=== PATIENT | female | born 1975 | race Caucasian/White ===

== ENCOUNTER 2020-05-18 16:21 | Emergency (ER) | payer OTHER, SELFPAY ==
--- NOTE | ~2020-05-18 | CT_ITS ---
EXAMINATION: CT abdomen pelvis w con DATE: 05/18/2020 17:38 INDICATION: Lower abdominal pain. TECHNIQUE: Computed tomography (CT) of the abdomen and pelvis was performed with 100 mL Omnipaque-350 intravenous contrast. Automated exposure control and iterative reconstruction technique were employe d. The dose-length product was 550.70 mGy-cm. COMPARISON: None FINDINGS: Small calcified left lower lobe nodule consistent with old granulomatous disease. Heart size is magno l. No pericardial or pleural effusion. Small sliding-type hiatal hernia. Liver, gallbladder, pancreas , bilateral adrenal glands and kidneys are normal. Multiple splenic calcific lesions consistent with old granulomatous disease. Large amount of stool scattered throughout the colon. No bowel obstruction . Nonvisualized appendix with suture line at the tip of the cecum suggesting prior appendectomy. 3.2 cm right adnexal cyst. There is wall thickening of the bladder with mild stranding to the surrounding fat. The uterus is not identified and has likely been surgically resected. Small amount of gas and f luid in the deep pelvis with peripheral enhancing rim. It is unclear whether this is within the poste rior bladder, within the vaginal vault, a separate small intraperitoneal abscess or loop of bowel. No free intraperitoneal gas. No pathologically enlarged abdominal or pelvic lymphadenopathy. Moderate d isc height loss at L5-S1. Bones are otherwise unremarkable. IMPRESSION: 1. Wall thickening of the bladder with stranding to the surrounding fat consistent with cystitis. 2. 3.4 x 1.1 cm loculated gas and fluid collection in the deep central pelvis, unclear whether this i s within the vaginal vault, posterior aspect of the partially collapsed bladder, within a loop of bow el or a separate intraperitoneal abscess. 3. 3.2 cm right adnexal cyst. Reviewed, dictated and finalized at [facility]. Y ANALYST IMPRESSION: 1. Wall thickening of the bladder with stranding to the surrounding fat consist ent with cystitis. 2. 3.4 x 1.1 cm loculated gas and fluid collection in the deep central pelvis, unclear whether this is within the vaginal vault, posterior aspect of the parti ally collapsed bladder, within a loop of bowel or a separate intraperitoneal ab scess. 3. 3.2 cm right adnexal cyst.
[2020-05-18 16:24] VITALS: BP 111/72; PULSE 90; RESP 16; TEMP 35.7; O2SAT 96
[2020-05-18 17:08] LABS: Basophils Absolute Auto 0.1 K/mm3 (0.0-0.1); Basophils Percent Auto 0.9 % (0.2-1.2); Eosinophils Absolute Auto 0.2 K/mm3 (0-0.3); Eosinophils Percent Auto 2.3 % (0-4.4); Hematocrit 34.3 % (37.0-47.0); Hemoglobin 11.2 g/dL (12.0-15.0); Immature Granulocyte Absolute 0.01 K/mm3 (0.00-0.031); Immature Granulocyte Percent A 0.2 % (0-0.5); Lymphocytes Absolute Auto 1.97 K/mm3 (0.9-3.2); Lymphocytes Percent Auto 30.4 % (18.3-44.2); Mean Corpuscular HGB Conc 32.7 g/dl (32-36); Mean Corpuscular Hemoglobin 29.9 pg (26-34); Mean Corpuscular Volume 91.7 fl (80-100); Mean Platelet Volume 9.4 fl (7.4-10.4); Monocytes Absolute Auto 0.6 K/mm3 (0.1-0.6); Monocytes Percent Auto 8.7 % (2.6-8.5); Neutrophils Absolute Auto 3.7 K/mm3 (1.3-6.7); Neutrophils Percent Auto 57.5 % (45.5-73.1); Platelet Count Result 269 k/mm3 (150-375); Red Blood Count 3.74 M/mm3 (4.2-5.4); Red Cell Distribution Width 13.8 % (11.5-14.5); White Blood Count 6.5 K/mm3 (4.5-10.0)
--- NOTE | 2020-05-18 17:10 | ED.GENADULT ---
HPI - General Adult General Chief complaint: Unspecified Stated complaint: ABDOMINAL PAIN/POST OP HYSTERCTOMY Time Seen by Provider: 05/18/20 16:45 Source: patient Mode of arrival: ambulatory Limitations: no limitations History of Present Illness HPI narrative: This patient is a 44 year old female with history of endometriosis s/p hysterectomy 04/08/20 who presents for evaluation of lower abdominal pain and difficulty urinating. She reports she had a hysterectomy performed at [facility] in [place]. She states she had to go back to surgery for a postoperative infection. Since her postoperative infection, she has been having constant serous red drainage vaginally. She reports her surgeon and OBGYN is aware. She has been sent to ER today because she reports lower abdominal pain x 2 day. This pain has been constant. She also reports burning vaginal pain due to constant drainage. She also reports increased urinary hesitancy and dysria. She denies fever or chills. Her last BM was yesterday. Related Data Allergies Allergy/AdvReac Type Severity Reaction Status Date / Time clams Allergy Unknown HIVES Verified 08/04/18 07:46 latex Allergy Unknown GLOVES-RASH Verified 08/04/18 07:46 ITCHING Penicillins Allergy Unknown RESPIR. Verified 08/04/18 07:46 DISTRESS Review of Systems Review of Systems: All systems reviewed & are unremarkable except as noted in HPI and below PMFSH Past Medical History Medical History (Updated 05/18/20 @ 18:36 by Jessica Betts MD) Endometriosis Surgical History Surgical History (Updated 05/18/20 @ 17:16 by Jessica Betts MD) H/O: hysterectomy Social History Social History (Updated 05/18/20 @ 17:16 by Jessica Betts MD) Smoking status: Former smoker Exam Narrative: Exam Narrative: GENERAL: Well-appearing, well-nourished, and in no acute distress. HEAD: Normocephalic, atraumatic EYES: PERRLA and EOMI, conjunctiva clear without discharge THROAT:Mucous membranes moist, Oropharynx normal without erythema, exudate, peritonsillar swelling or fluctuance NECK: Supple, without lymphadenopathy or mass RESPIRATORY: No respiratory distress, Airway patent, Respirations non-labored, Clear to auscultation without rales, rhonchi or wheeze HEART: Regular rate and rhythm. No murmur heard. Normal peripheral pulses. ABDOMEN: Soft, suprapubic, nondistended, normal active bowel sounds. No masses. No rebound or guarding, No organomegaly. EXTREMITIES: No edema, normal strength with full range of motion. SKIN: Warm, dry, normal color without rash NEURO: Alert and oriented x3. CN 2-12 grossly intact. No focal deficits. PSYCH: Normal mood and affect. Course Consultations Consultation #1: I discussed CT reading with Dr. Christianson. He is aware of patient. He states the possible fluid collection is much smaller than her original. He states he will continued to treat patient as an outpatient. I discussed patient found to have cystitis so she will be started on antibiotics. Bladder scan done on arrival and no sign of retention Date: 05/18/20 Time: 18:31 Vital Signs Vital signs: Vital Signs Temperature 96.3 F L 05/18/20 16:24 Pulse Rate 90 05/18/20 16:24 Respiratory Rate 16 05/18/20 16:24 Blood Pressure 111/72 05/18/20 16:24 Pulse Oximetry 96 05/18/20 16:24 Temperature 96.3 F L 05/18/20 16:24 Pulse Rate 88 05/18/20 17:53 Respiratory Rate 20 05/18/20 17:53 Blood Pressure 98/70 L 05/18/20 17:53 Pulse Oximetry 100 05/18/20 17:53 Medical Decision Making Vital Signs Vital Signs: Vital Signs Temperature 96.3 F L 05/18/20 16:24 Pulse Rate 90 05/18/20 16:24 Respiratory Rate 16 05/18/20 16:24 Blood Pressure 111/72 05/18/20 16:24 Pulse Oximetry 96 05/18/20 16:24 Temperature 96.3 F L 05/18/20 16:24 Pulse Rate 88 05/18/20 17:53 Respiratory Rate 20 05/18/20 17:53 Blood Pressure 98/70 L 05/18/20 17:53 Pulse Oximetry 100 02
[2020-05-18 17:14] LABS: Add Urine Microscopic? YES; Appearance Urine Cloudy (Clear); Bacteria Urine Trace /hpf; Bilirubin Urine Negative (Negative); Blood Urine 1+ (Negative); Color Urine Yellow (Yellow); Glucose Urine UA Negative (Negative); Ketones Urine Trace mg/dL (Negative); Leukocyte Esterase Ur 3+ LEU/UL (Negative); Mucus Urine Rare /lpf; Nitrate Urine Negative (Negative); Protein Urine 2+ mg/dL (Negative); RBC Urine 21-50 /hpf (0-2); Specific Grav Ur 1.027 (1.001-1.035); Squamous Epithelial Cell Urine Occasional /hpf (Few); Urobilinogen Urine Negative mg/dL (<2.0); WBC Urine >75 /hpf
[2020-05-18 17:22] LABS: Alanine Aminotransferase 17 U/L (4-35); Albumin Level 3.9 g/dL (3.5-5.1); Alkaline Phosphatase 70 U/L (38-126); Anion Gap 2 mmol/L (8-16); Aspartate Amino Transferase 24 U/L (14-36); Bilirubin,Total 0.2 mg/dL (0.2-1.3); Blood Urea Nitrogen 14 mg/dL (7-17); Calcium 8.9 mg/dL (8.4-10.2); Carbon Dioxide 30 mmol/L (22-30); Chloride 106 mmol/L (98-107); Estimated CRCL calculation 77 ml/min; Estimated Glomerular Filt Rate > 60; Glucose 80 mg/dL (65-105); Lipase 91 U/L (23-300); Potassium 4.1 mmol/L (3.4-5.0); Sodium 138 mmol/L (137-145)
[2020-05-18] MEDS: ONDANSETRON INJ 4 MG/2 ML VIAL IV PUSH (17:52)
[2020-05-18] MEDS: MORPHINE SULFATE (*CRX) 4 MG/ML INJ IV PUSH (17:52)
[2020-05-18 17:53] VITALS: BP 98/70; PULSE 88; RESP 20; O2SAT 100
[2020-05-18] MEDS: SODIUM CHLORIDE 0.9% IV 1,000 ML 999 ML IV CONT (17:53)
[2020-05-18] MEDS: CIPROFLOXACIN 500 MG TAB PO (18:43)
[2020-05-18 18:44] VITALS: BP 107/79; PULSE 68; RESP 20; O2SAT 100
== END 2020-05-18 18:48 | disposition home or self-care (01) ==
PROVIDERS: Emergency Provider General Practice
DX: N30.90 Cystitis, unspecified without hematuria (principal); R93.5 Abnormal findings on diagnostic imaging of other abdominal regions, including retroperitoneum; Z87.891 Personal history of nicotine dependence; N94.89 Other specified conditions associated with female genital organs and menstrual cycle
CPT/HCPCS: 36415; 74177; 80053; 81001; 83690; 85025; 87077; 87086; 87088; 96361; 96374; 96375; 99284; A9270; J2270; J2405; J7030; Q9967

== ENCOUNTER 2020-05-23 09:25 | Outpatient (CLI) | payer OTHER, SELFPAY ==
--- NOTE | ~2020-05-23 | CT_ITS ---
EXAMINATION: CT abdomen pelvis wo/w con DATE: 05/23/2020 10:13 INDICATION: Postoperative complications after April 08, 2020 hysterectomy TECHNIQUE: Computed tomography (CT) of the abdomen and pelvis was performed without and subsequently with 130 cc Omnipaque 350 intravenous contrast. Automated exposure control and iterative reconstructi on technique were employed. Exam dose: 1362.86 mGy-cm total exam DLP. COMPARISON: May 18, 2020 CT abdomen pelvis FINDINGS: The lung bases are clear of infiltrate or consolidation. Normal heart size. No pericardial or pleural effusion. The liver, gallbladder, bile ducts, spleen, pancreas, pancreatic duct, and adrenal glands and kidneys are unremarkable. No urinary tract calculus or hydroureteronephrosis. Normal caliber of the abdominal aorta. No intraperitoneal or retroperitoneal or pelvic adenopathy or ascites. The urinary bladder is unremarkable. There is a 4.1 x 4.1 centimeter cystic lesion in the right adnexal area; this has increased in size f rom 3.1 x 3.3 cm dimension on May 18, 2020. Contrast material is noted in the vagina, extending into the vaginal vault, possibly due to reflux fr om the bladder versus fistula; however, there is no air in the bladder lumen. There is some apparent extravasated contrast material adjacent to the distal left ureter which may in dicate distal left ureteral leakage. Consider left retrograde pyelography to evaluate for distal left ureteral leak. Small sliding hiatal hernia. Status post appendectomy. There is a prominent amount of fecal material within the colon. No bowel wa ll thickening, pneumatosis or intraperitoneal free air. Small fat-containing umbilical hernia. Included skeletal structures are unremarkable. IMPRESSION: Possible distal left ureteral extravasation; consider left retrograde pyelogram to evalua te for distal left ureteral leak Increased size of right adnexal cystic lesion to 4.1 x 4.1 cm dimension from 3.1 x 3.3 cm on 1 Previous small fluid and air collection described on May 2020 CT abdomen pelvis examination is s ituated in the vaginal vault Reviewed, dictated and finalized at [facility]. Reviewed, dictated and finalized at [facility]. CTOR OF COMPLIANCE IMPRESSION: Possible distal left ureteral extravasation; consider left retrogra de pyelogram to evaluate for distal left ureteral leak Increased size of right adnexal cystic lesion to 4.1 x 4.1 cm dimension from 3. 1 x 3.3 cm on 05/18/2020 Previous small fluid and air collection described on May 2020 CT abdomen p pinky examination is situated in the vaginal vault
== END 2020-05-23 09:26 | disposition home or self-care (01) ==
LOC: ANHIMG 09:28
PROVIDERS: PCP Internal Medicine; Visit Provider Obstetrics & Gynecology
DX: T81.89XA Other complications of procedures, not elsewhere classified, initial encounter (principal); R93.5 Abnormal findings on diagnostic imaging of other abdominal regions, including retroperitoneum; R19.09 Other intra-abdominal and pelvic swelling, mass and lump
CPT/HCPCS: 74178; Q9967